=== PATIENT | female | born 1960 | race Caucasian/White ===

== ENCOUNTER → 2023-07-24 | Outpatient (CLI) | payer BC ==
[2023-07-24 12:39] LABS: BUN 10 mg/dl (9-23)
== END | disposition home or self-care (01) ==
LOC: LAB 11:36
PROVIDERS: ATTEND Urology
DX: R31.0 Gross hematuria (principal)

== ENCOUNTER → 2023-07-27 | Outpatient (CLI) | payer BC | END | disposition home or self-care (01) | LOC: CT 00:51 | PROVIDERS: ATTEND Urology | DX: K76.0 Fatty (change of) liver, not elsewhere classified (principal); Z98.890 Other specified postprocedural states ==

== ENCOUNTER → 2023-10-25 | Outpatient (CLI) | payer BC ==
[~2023-10-25] MED LIST: LIPITOR20 MG PO; LOSARTAN-HCTZ1 EAC2 PO; NORVASC5 MG PO; PHARMASSURE FO0.4 MG PO
== END | disposition home or self-care (01) ==
LOC: CARD 00:20
PROVIDERS: ATTEND Internal Medicine
DX: R07.9 Chest pain, unspecified (principal)

== ENCOUNTER → 2024-01-27 | Outpatient (CLI) | payer BC | END | disposition home or self-care (01) | LOC: ORTHO 01:21 | PROVIDERS: ATTEND Orthopaedic Surgery | DX: M17.11 Unilateral primary osteoarthritis, right knee (principal); M25.461 Effusion, right knee; M25.561 Pain in right knee ==